=== PATIENT | male | born 1940 | race Caucasian/White ===

== ENCOUNTER 2021-01-01 12:51 | Emergency (ER) | payer MEDICARE ==
--- NOTE | 2021-01-01 13:21 | EDM.PDOC ---
ED HPI GENERAL MEDICAL PROBLEM - General Chief Complaint: General Stated Complaint: SENT FROM [facility]COM[facility] Time Seen by Provider: 01/01/21 13:20 Source of Information: Reports: Patient, RN, RN Notes Reviewed History Limitations: Reports: No Limitations - History of Present Illness INITIAL COMMENTS - FREE TEXT/NARRATIVE: Pt brought from [facility] due to elevated blood pressure, shortness of breath when laying flat, increased leg edema, generalized weakness, and feeling dizzy/lightheaded at times. Pt states he's most SOB when lying down, sleeps propped on 2 pillows. No home O2, no current shortness of breath. Pt caregivers state pt is weaker today than normal. Pt admits to some medication noncompliance which is echoed by caregivers. Pt denies chest pain, fever, chills, cough, N/V, or acute motor deficits. Onset: Gradual, Unknown/Unsure Duration: Chronic, Getting Worse Location: Reports: Chest, Generalized Quality: Reports: Other (Denies pain) Severity: Severe Improves with: Reports: None Worsens with: Reports: None Associated Symptoms: Reports: No Other Symptoms - Related Data Allergies Allergy/AdvReac Type Severity Reaction Status Date / Time No Known Allergies Allergy Verified 01/01/21 13:20 Home Meds: Home Meds Allopurinol [Zyloprim] 150 mg PO DAILY 01/01/21 [History] Bumetanide [Bumex] 1 mg PO DAILY 01/01/21 [History] Finasteride [Proscar] 5 mg PO DAILY 01/01/21 [History] Rosuvastatin [Crestor] 10 mg PO DAILY 01/01/21 [History] Tamsulosin [Tamsulosin 24 Hr] 0.4 mg PO DAILY 01/01/21 [History] atenoloL [Atenolol] 100 mg PO DAILY 01/01/21 [History] glipiZIDE [Glipizide ER] 20 mg PO DAILY 01/01/21 [History] Past Medical History Cardiovascular History: Reports: Afib, Heart Failure, Hypertension Neurological History: Reports: CVA Endocrine/Metabolic History: Reports: Diabetes, Type II, Obesity/BMI 30+ Social & Family History - Family History Family Medical History: Unobtainable - Alcohol Use Alcohol Use History: Yes Alcohol Use Frequency: Not Used in Over 1 Year - Living Situation & Occupation Living situation: Reports: with Family Occupation: Retired ED ROS GENERAL - Review of Systems Review Of Systems: Comprehensive ROS is negative, except as noted in HPI. ED EXAM, GENERAL - Physical Exam Exam: See Below Exam Limited By: No Limitations General Appearance: Alert, No Apparent Distress, Obese, Other (Chronically ill appearing elderly male) Eye Exam: Bilateral Eye: Normal Inspection Nose: Normal Inspection, Normal Mucosa, No Blood Throat/Mouth: Normal Inspection, Normal Lips, Normal Voice, No Airway Compromise Head: Atraumatic, Normocephalic Neck: Normal Inspection Respiratory/Chest: No Respiratory Distress, No Accessory Muscle Use, Decreased Breath Sounds Cardiovascular: JVD, Irregularly Irregular, Other (+3 pitting edema to the knees B/L) GI/Abdominal: Normal Bowel Sounds, Soft, Non-Tender, No Distention, Hernia (ventral) Back Exam: Normal Inspection Extremities: Normal Range of Motion, Pedal Edema Neurological: Alert, Oriented, No Motor/Sensory Deficits, Other (Generalized weakness) Psychiatric: Depressed Mood, Flat Affect Skin Exam: Warm, Dry, Normal Color, No Rash #1 Interpretation EKG Date: 01/01/21 Time: 13:40 Rhythm: A-Fib Rate (Beats/Min): 79 Jay: Normal P-Wave: Absent QRS: RBBB ST-T: Normal QT: Normal Comparison: NA - No Prior EKG EKG Interpretation Comments: Motion artifact in V3. Course - Vital Signs Last Recorded V/S: Last Vital Signs Temp 97.9 F 01/01/21 13:11 Pulse 87 01/01/21 13:11 Resp 20 01/01/21 13:11 BP 154/100 H 01/01/21 13:11 Pulse Ox 96 01/01/21 13:11 - Orders/Labs/Meds Orders: Active Orders 24 hr Category Date Time Status EKG 12 Lead [EKG Documentation Completion] [RC] STAT Care 01/01/21 13:35 Active Peripheral IV Care [RC] . DIRECTED Care 01/01/21 13:36 Active UA RFX CHYNA AND CULT IF INDIC [URIN] Stat Lab 01/01/21 13:35 Ordered Sodium Chloride 0.9% [Saline Flush] Med 01/01/21 13:34 Active 10 ml FLUSH ASDIRECTED PRN Peripheral IV Insertion Adult [OM.PC] Stat Oth 01/01/21 13:35 Ordered Medication Orders Sodium Chloride (Saline Flush) 10 ml FLUSH ASDIRECTED PRN PRN Reason: Keep Vein Open Last Admin: 01/01/21 13:49 Dose: 10 ml Documented by: ANNIKA Labs: Laboratory Tests 01/01/21 01/01/21 01/01/21 Range/Units 13:45 13:45 13:45 WBC 7.8 (5.0-10.0) 10^3/uL RBC 4.74 (4.6-6.2) 10^6/uL Hgb 14.7 (14.0-18.0) g/dL Hct 44.9 (40.0-54.0) % MCV 94.7 (80-100) fL MCH 31.0 (27.0-34.0) pg MCHC 32.7 L (33.0-35.0) g/dL Plt Count 170 (150-450) 10^3/uL Neut % (Auto) 68.1 (42.2-75.2) % Lymph % (Auto) 20.0 L (20.5-50.1) % [place] % (Auto) 9.9 H (2-8) % Eos % (Auto) 1.7 (1.0-3.0) % Baso % (Auto) 0.3 (0.0-1.0) % PT 11.6 (9.0-12.0) SEC INR 1.2 (0.9-1.2) APTT 23.7 (22.0-34.0) SEC Sodium 139 (136-145) mmol/L Potassium 3.5 (3.5-5.1) mmol/L Chloride 103 (98-107) mmol/L Carbon Dioxide 32 (21-32) mmol/L Anion Gap 7.5 (7-13) mEq/L BUN 26 H (7-18) mg/dL Creatinine 1.65 H (0.70-1.30) mg/dL Est Cr Clr Drug Dosing 39.19 mL/min Estimated GFR (MDRD) 40 BUN/Creatinine Ratio 15.8 (No establ ref range) Glucose 198 H (74-99) mg/dL Calcium 9.1 (8.5-10.1) mg/dL Magnesium 1.8 (1.8-2.4) mg/dL Total Bilirubin 0.7 (0.2-1.0) mg/dL AST 20 (15-37) U/L ALT 28 (16-63) U/L Alkaline Phosphatase 111 (46-116) U/L Troponin I 0.026 (0.000-0.056) ng/mL B-Natriuretic Peptide 622 H (0-100) pg/ml Total Protein 6.6 (6.4-8.2) g/dL Albumin 3.1 L (3.4-5.0) g/dL Globulin 3.5 Albumin/Globulin Ratio 0.89 TSH, Ultra Sensitive 1.06 (0.36-3.74) uIU/mL Meds: Medications Generic Name Dose Route Start Last Admin Trade Name Freq PRN Reason Stop Dose Admin Sodium Chloride 10 ml 01/01/21 13:34 01/01/21 13:49 Saline Flush FLUSH 10 ml ASDIRECTED PRN Administration Keep Vein Open Discontinued Medications Generic Name Dose Route Start Last Admin Trade Name Freq PRN Reason Stop Dose Admin Hydralazine HCl 25 mg 01/01/21 14:31 Apresoline PO 01/01/21 14:32 ONETIME ONE Quetiapine Fumarate 50 mg 01/01/21 14:16 Seroquel PO 01/01/21 14:17 ONETIME ONE - Radiology Interpretation Free Text/Narrative:: [facility] Final Radiology Report Call: [phone] assistance Online chat: [email or web address] Name: CHARMAINE LAMB Age: 80Years M Date: 01/01/2021 SSN: -- : [id number] Study: CR CHEST 1V FRONTAL Requesting Physician: CAMPBELL TROY Images: 1 Addl Studies: Provided Clinical History: Gen. weakness, orthopnea, edema Contrast: Contrast Medium: Contrast Amount: Contrast Method: CONFIDENTIALITY STATEMENT This report is intended only for use by the referring physician, and only in accordance with law. If you received this in error, call [phone]. Page 1 of 1 PROCEDURE INFORMATION: Exam: XR Chest, 1 View Exam date and time: 01/01/2021 1:40 PM Age: 80 years old Clinical indication: Other: Gen. Weakness, orthopnea, edema; Prior surgery; Surgery date: 6+ months TECHNIQUE: Imaging protocol: XR of the chest Views: 1 view. COMPARISON: No relevant prior studies available. FINDINGS: Lungs: Unremarkable. No consolidation. Pleural spaces: Fluid or thickened pleura in the left costophrenic angle. Heart/Mediastinum: Cardiomegaly. Sternotomy with mediastinal. Bones/joints: Unremarkable. IMPRESSION: 1. Minimal fluid or thickened pleura left costophrenic angle. 2. Cardiomegaly. Thank you for allowing us to participate in the care of your patient. Dictated and Authenticated by: Verenice Gandara MD 01/01/2021 1:48 PM Central Time ([place] & [place]) - Re-Assessments/Exams Free Text/Narrative Re-Assessment/Exam: 01/01/21 14:37 I explained the exam findings and diagnostic results to the pt. I seen no evidence of decompensated CHF, acute coronary syndrome, pneumonia, or any indication that the pt would benefit from being admitted at this time. Essentially the pt has been choosing to not take his medications, and not wearing his compression stockings. Departure - Departure Time of Disposition: 14:41 Disposition: Home, Self-Care 01 Condition: Fair Clinical Impression: Hypertension, uncontrolled, Dependent edema, Noncompliance w/medication treatment due to intermit use of medication - Discharge Information *PRESCRIPTION DRUG MONITORING PROGRAM REVIEWED*: Not Applicable *COPY OF PRESCRIPTION DRUG MONITORING REPORT IN PATIENT RIAN: Not Applicable Instructions: Hypertension, Adult, [id number], Edema, [id number] Forms: ED Department Discharge Additional Instructions: Take your Bumex every morning. Wear your compression stockings. Call Dr. Avendaño's clinic to schedule an appointment to review your medications. Sepsis Event Note (ED) - Evaluation Sepsis Screening Result: No Definite Risk - Focused Exam Vital Signs: Vital Signs Temp Pulse Resp BP Pulse Ox 01/01/21 13:11 97.9 F 87 20 154/100 H 96 - My Orders Last 24 Hours: My Active Orders 01/01/21 13:34 Sodium Chloride 0.9% [Saline Flush] 10 ml FLUSH ASDIRECTED PRN 01/01/21 13:35 EKG 12 Lead [EKG Documentation Completion] [RC] STAT UA RFX CHYNA AND CULT IF INDIC [URIN] Stat Peripheral IV Insertion Adult [OM.PC] Stat 01/01/21 13:36 Peripheral IV Care [RC] . DIRECTED - Assessment/Plan Last 24 Hours: My Active Orders 01/01/21 13:34 Sodium Chloride 0.9% [Saline Flush] 10 ml FLUSH ASDIRECTED PRN 01/01/21 13:35 EKG 12 Lead [EKG Documentation Completion] [RC] STAT UA RFX CHYNA AND CULT IF INDIC [URIN] Stat Peripheral IV Insertion Adult [OM.PC] Stat 01/01/21 13:36 Peripheral IV Care [RC] . DIRECTED
[2021-01-01] MEDS ORDERED: Sodium Chloride 0.9% 10 ML Syringe FLUSH PRN (13:34)
--- NOTE | 2021-01-01 13:48 | CR ---
PROCEDURE INFORMATION: Exam: XR Chest, 1 View Exam date and time: 01/01/2021 1:40 PM Age: 80 years old Clinical indication: Other: Gen. Weakness, orthopnea, edema; Prior surgery; Surgery date: 6+ months TECHNIQUE: Imaging protocol: XR of the chest Views: 1 view. COMPARISON: No relevant prior studies available. FINDINGS: Lungs: Unremarkable. No consolidation. Pleural spaces: Fluid or thickened pleura in the left costophrenic angle. Heart/Mediastinum: Cardiomegaly. Sternotomy with mediastinal. Bones/joints: Unremarkable. IMPRESSION: 1. Minimal fluid or thickened pleura left costophrenic angle. 2. Cardiomegaly.
[2021-01-01] MEDS ORDERED: LORazepam 0.5 MG Tab PO ONE (14:16)
[2021-01-01] MEDS ORDERED: QUEtiapine 25 MG Tab PO ONE (14:16)
[2021-01-01 14:19] LABS: ANION GAP 7.5 mEq/L (7-13)
[2021-01-01 14:29] LABS: PTT,PARTIAL THROMBOPLSTIN TIME 23.7 SEC (22.0-34.0)
[2021-01-01] MEDS ORDERED: hydrALAZINE 25 MG Tab PO ONE (14:31)
== END 2021-01-01 15:16 | disposition home or self-care (01) ==
LOC: DL.ED 12:51
DX: I10 Essential (primary) hypertension (principal); R60.0 Localized edema; I48.91 Unspecified atrial fibrillation; I11.0 Hypertensive heart disease with heart failure; I50.9 Heart failure, unspecified; E11.9 Type 2 diabetes mellitus without complications; E66.9 Obesity, unspecified; Z79.899 Other long term (current) drug therapy; Z79.84 Long term (current) use of oral hypoglycemic drugs; Z68.32 Body mass index [BMI] 32.0-32.9, adult; Z91.14 Patient's other noncompliance with medication regimen; Z86.73 Personal history of transient ischemic attack (TIA), and cerebral infarction without residual deficits
CPT/HCPCS: 36415; 71045; 80053; 81001; 83735; 83880; 84443; 84484; 85025; 85610; 85730; 87086; 87088; 87186; 93005; 99285; A9270; 93010; 99284

== ENCOUNTER 2021-02-11 17:17 | Observation (INO) | payer MEDICARE ==
--- NOTE | 2021-02-11 17:56 | PCM.PN ---
- General Info Date of Service: 02/11/21 Admission Dx/Problem (Free Text): 80M w/ pmh cognitive impairment, diastolic CHF, HT, AAA, CAD s/p CABGx2, CKD3, pulm HT, DM2, s/p CVA w/ left sided weakness, gout, renal artery stenosis, MELLY, afib presents w/ confusion. Pt had recently moved in with family. He is at baseline forgetful but has insisted to manage his own medications. He reportedly self discontinued his eliquis due to hematuria. There is also questionable compliance with bumex. He is also reportedly trying to move out of daughters house into assisted living. He came into clinic today to establish new PCP. He was found confused, unable to report meds, lost his glasses in the clinic, swollen red legs, malodorous, UA+ for UTI, unclear safe discharge back home. He was sent to the hospital to address all of above. - Review of Systems General: Reports: Weakness. Denies: Fever, Chills, Night Sweats HEENT: Denies: Headaches Pulmonary: Denies: Shortness of Breath, Cough Cardiovascular: Reports: Edema (trace RLE, 1+ LLE). Denies: Chest Pain, Orthopnea Gastrointestinal: Denies: Abdominal Pain, Constipation, Diarrhea Genitourinary: Reports: Frequency, Hematuria. Denies: Dysuria Skin: Denies: Jaundice Neurological: Reports: Confusion, Dizziness. Denies: Tremors Psychiatric: Reports: Confusion. Denies: Anxiety - Patient Data Med Orders - Current: Current Medications Acetaminophen (Acetaminophen 325 Mg Tab) 650 mg PO Q4H PRN PRN Reason: Pain (Mild 1-3)/fever Apixaban (Apixaban 5 Mg Tab) 2.5 mg PO BID [facility] Ceftriaxone Sodium 1 gm/ (Sodium Chloride) 50 mls @ 100 mls/hr IV Q24H LEONEL - Exam Quality Assessment: No: Supplemental Oxygen General: Alert, Cooperative HEENT: Pupils Equal, Pupils Reactive Neck: Supple Lungs: Clear to Auscultation, Normal Respiratory Effort GI/Abdominal Exam: Normal Bowel Sounds, Soft, Non-Tender, No Distention Back Exam: Normal Inspection Extremities: Other (trace RLE, 1+ LLE) Peripheral Pulses: 1+: Dorsalis Pedis (L), Dorsalis Pedis (R) Skin: Warm, Dry, Other (b/l chronic venous stasis dermatitis, LLE plantar aspect calice) Neurological: Other (left sided weakness) Psy/Mental Status: Alert, Normal Affect, Normal Mood - Problem List Review Problem List Initiated/Reviewed/Updated: No - My Orders Last 24 Hours: My Active Orders 02/11/21 Breakfast Consistent Carbohydrate Diet [DIET] 02/11/21 17:36 Patient Status [ADT] Routine Oxygen Therapy [RC] PRN VTE/DVT Education [RC] PER UNIT ROUTINE Vital Signs [RC] Q4H Resuscitation Status Routine 02/11/21 17:38 Up With Assistance [RC] ASDIRECTED PT Evaluation and Treatment [CONS] Routine Venous Doppler Lwr Ext Bi [US] Routine Acetaminophen [TylenoL] 650 mg PO Q4H PRN 02/11/21 17:42 CORONAVIRUS COVID-19 YI [MOLEC] Urgent 02/11/21 17:45 cefTRIAXone [Rocephin] 1 gm Sodium Chloride 0.9% [Normal Saline] 50 ml IV Q24H 02/11/21 21:00 Apixaban [Eliquis] 2.5 mg PO BID 02/12/21 05:11 BASIC METABOLIC PANEL,BMP [CHEM] AM CBC WITH AUTO DIFF [HEME] AM GLYCOSYLATED HEMOGLOBIN,HGBA1C [CHEM] AM - Plan Plan:: #UTI w/ possible toxic encephalopathy - UA positive in clinic - dose ceftriaxone pending cultures #b/l LE edema - d-dimer elevated in clinic but suspect this is due to venous stasis - the legs do not appear acute on my exam - check LE dopplers - restart eliquis #afib - c/w atenolol and re-start eliquis at 2.5 bid due to Cr 1.6 and 80yo meeting low dose criteria - no hematuria now and benefit of stroke ppx outweighs the risks #DM2 - hold glyburide - check A1c #chronic diastolic CHF / CKD3 / hx CVA / CAD / MELLY / gout / pulm HT - c/w home meds PT and CM consults to work out a safe discharge plan PPX - on eliquis Full code
[2021-02-11] MEDS ORDERED: Sodium Chloride 0.9% 10 ML Syringe FLUSH PRN (18:10)
[2021-02-11] MEDS: cefTRIAXone 1 GM in Sodium Chloride 0.9% 50 ML IV SCH (19:24)
[2021-02-11] MEDS: Apixaban 5 MG Tab PO SCH (21:10)
[2021-02-11] MEDS: Tamsulosin 0.4 MG Cap.ER PO SCH (21:11)
[2021-02-11] MEDS: Losartan 50 MG Tab PO SCH (21:11)
[2021-02-11] MEDS: Rosuvastatin 10 MG Tab PO SCH (21:11)
[2021-02-11] MEDS: Finasteride 5 MG Tab PO SCH (21:27)
[2021-02-11] MEDS: Acetaminophen 325 MG Tab PO PRN (23:36)
[2021-02-12 06:48] LABS: ANION GAP 10.5 mEq/L (7-13); HEMOGLOBIN A1C 8.3 % (<5.7)
[2021-02-12] MEDS ORDERED: Allopurinol 300 MG Tab PO SCH (09:00)
[2021-02-12] MEDS: Potassium Chloride 10 MEQ Tab.ER PO SCH (09:37)
[2021-02-12] MEDS: Bumetanide 1 MG Tab PO SCH (09:37)
[2021-02-12] MEDS: Atenolol 50 MG Tab PO SCH (09:38)
[2021-02-12] MEDS: Apixaban 5 MG Tab PO SCH ×2 (09:38→20:22)
--- NOTE | 2021-02-12 12:49 | US ---
EXAMINATION: Venous Doppler Lwr Ext Bi SEX: Male AGE: 80 years CLINICAL HISTORY: 80-year-old male with bilateral LOWER EXTREMITY SWELLING. Significantly, this patient stopped his "blood thinners" , PRN. Interpretation: Abnormal. 1. *Intraluminal echogenic thrombus and noncompressible deep veins of both groins (common femoral veins) and the popliteal vein behind the left knee. No augmentation or demonstration of blood flow through these vessels. DVT. 2. No sign of intraluminal echogenic thrombus and normal blood flow (patency) demonstrated in the peroneal veins left calf and both the posterior tibial veins of the left and right calf. 3. Popliteal vein behind the right knee is patent (left popliteal vein occluded). 4. Patency and blood flow (no thrombus) demonstrated in the superficial femoral veins of the thighs, bilaterally. CONCLUSION: Significant deep vein thrombosis both lower extremities, proximally in the groins (common femoral veins).
--- NOTE | 2021-02-12 17:21 | PCM.PN ---
- General Info Date of Service: 02/12/21 Admission Dx/Problem (Free Text): No complaints. Compliant w/ instructions to allow family to do med management at home. Agreeable now to take eliquis. - Patient Data Vitals - Most Recent: Last Vital Signs Temp 98 F 02/12/21 11:21 Pulse 54 L 02/12/21 11:21 Resp 18 02/12/21 11:21 BP 144/74 H 02/12/21 11:21 Pulse Ox 99 02/12/21 11:21 Weight - Most Recent: 217 lb 3.2 oz I&O - Last 24 Hours: Intake & Output 02/12/21 02/12/21 02/12/21 06:59 14:59 22:59 Intake Total 300 480 Output Total 750 1100 Balance -450 -620 Lab Results Last 24 Hours: Laboratory Results - last 24 hr 02/11/21 02/11/21 02/12/21 Range/Units 18:04 21:07 06:05 WBC 5.7 (5.0-10.0) 10^3/uL RBC 4.40 L (4.6-6.2) 10^6/uL Hgb 13.6 L (14.0-18.0) g/dL Hct 41.3 (40.0-54.0) % MCV 93.9 (80-100) fL MCH 30.9 (27.0-34.0) pg MCHC 32.9 L (33.0-35.0) g/dL Plt Count 138 L (150-450) 10^3/uL Neut % (Auto) 50.5 (42.2-75.2) % Lymph % (Auto) 30.8 (20.5-50.1) % Rowan % (Auto) 12.7 H (2-8) % Eos % (Auto) 5.5 H (1.0-3.0) % Baso % (Auto) 0.5 (0.0-1.0) % Sodium (136-145) mmol/L Potassium (3.5-5.1) mmol/L Chloride (98-107) mmol/L Carbon Dioxide (21-32) mmol/L Anion Gap (7-13) mEq/L BUN (7-18) mg/dL Creatinine (0.70-1.30) mg/dL Est Cr Clr Drug Dosing mL/min Estimated GFR (MDRD) Glucose (74-99) mg/dL POC Glucose 241 H (83-110) mg/dl Hemoglobin A1c (<5.7) % Calcium (8.5-10.1) mg/dL SARS-CoV-2 RNA (YI) Negative (NEGATIVE) 02/12/21 02/12/21 Range/Units 06:05 06:05 WBC (5.0-10.0) 10^3/uL RBC (4.6-6.2) 10^6/uL Hgb (14.0-18.0) g/dL Hct (40.0-54.0) % MCV (80-100) fL MCH (27.0-34.0) pg MCHC (33.0-35.0) g/dL Plt Count (150-450) 10^3/uL Neut % (Auto) (42.2-75.2) % Lymph % (Auto) (20.5-50.1) % Rowan % (Auto) (2-8) % Eos % (Auto) (1.0-3.0) % Baso % (Auto) (0.0-1.0) % Sodium 145 (136-145) mmol/L Potassium 3.5 (3.5-5.1) mmol/L Chloride 107 (98-107) mmol/L Carbon Dioxide 31 (21-32) mmol/L Anion Gap 10.5 (7-13) mEq/L BUN 26 H (7-18) mg/dL Creatinine 1.56 H (0.70-1.30) mg/dL Est Cr Clr Drug Dosing 41.45 mL/min Estimated GFR (MDRD) 43 Glucose 146 H (74-99) mg/dL POC Glucose (83-110) mg/dl Hemoglobin A1c 8.3 H (<5.7) % Calcium 8.8 (8.5-10.1) mg/dL SARS-CoV-2 RNA (YI) (NEGATIVE) Med Orders - Current: Current Medications Acetaminophen (Acetaminophen 325 Mg Tab) 650 mg PO Q4H PRN PRN Reason: Pain (Mild 1-3)/fever Last Admin: 02/11/21 23:36 Dose: 650 mg Documented by: Allopurinol (Allopurinol 300 Mg Tab) 150 mg PO DAILY LEONEL Apixaban (Apixaban 5 Mg Tab) 10 mg PO BID [facility] Atenolol (Atenolol 50 Mg Tab) 50 mg PO DAILY [facility] Last Admin: 02/12/21 09:38 Dose: 50 mg Documented by: Bumetanide (Bumetanide 1 Mg Tab) 1 mg PO DAILY [facility] Last Admin: 02/12/21 09:37 Dose: 1 mg Documented by: Finasteride (Finasteride 5 Mg Tab) 5 mg PO BEDTIME [facility] Last Admin: 02/11/21 21:27 Dose: 5 mg Documented by: Ceftriaxone Sodium 1 gm/ (Sodium Chloride) 50 mls @ 100 mls/hr IV Q24H [facility] Last Infusion: 02/11/21 19:50 Dose: Infused Documented by: Losartan Potassium (Losartan 50 Mg Tab) 50 mg PO BEDTIME [facility] Last Admin: 02/11/21 21:11 Dose: 50 mg Documented by: Potassium Chloride (Potassium Chloride 10 Meq Tab.Er) 10 meq PO DAILY [facility] Last Admin: 02/12/21 09:37 Dose: 10 meq Documented by: Rosuvastatin Calcium (Rosuvastatin 10 Mg Tab) 10 mg PO BEDTIME [facility] Last Admin: 02/11/21 21:11 Dose: 10 mg Documented by: Sodium Chloride (Sodium Chloride 0.9% 10 Ml Syringe) 10 ml FLUSH ASDIRECTED PRN PRN Reason: Keep Vein Open Last Admin: 02/11/21 19:50 Dose: 10 ml Documented by: Tamsulosin HCl (Tamsulosin 0.4 Mg Cap.Er) 0.4 mg PO BEDTIME [facility] Last Admin: 02/11/21 21:11 Dose: 0.4 mg Documented by: Discontinued Medications Allopurinol (Allopurinol 300 Mg Tab) 300 mg PO DAILY [facility] Last Admin: 02/12/21 09:39 Dose: 300 mg Documented by: Apixaban (Apixaban 5 Mg Tab) 2.5 mg PO BID [facility] Last Admin: 02/12/21 09:38 Dose: 2.5 mg Documented by: - Exam Quality Assessment: No: Supplemental Oxygen General: Alert, Oriented, Cooperative HEENT: Pupils Equal, Pupils Reactive Neck: Supple Lungs: Clear to Auscultation, Normal Respiratory Effort Cardiovascular: Regular Rate, Regular Rhythm, No Murmurs GI/Abdominal Exam: Normal Bowel Sounds, Soft, Non-Tender, No Distention Extremities: Pedal Edema (trace RLE, 1+ pitting LLE) Skin: Other (b/l LE venous stasis dermatitis) Neurological: No New Focal Deficit Psy/Mental Status: Alert, Normal Affect, Normal Mood - Patient Data Lab Results Last 24 hrs: Laboratory Results - last 24 hr 02/11/21 02/11/21 02/12/21 Range/Units 18:04 21:07 06:05 WBC 5.7 (5.0-10.0) 10^3/uL RBC 4.40 L (4.6-6.2) 10^6/uL Hgb 13.6 L (14.0-18.0) g/dL Hct 41.3 (40.0-54.0) % MCV 93.9 (80-100) fL MCH 30.9 (27.0-34.0) pg MCHC 32.9 L (33.0-35.0) g/dL Plt Count 138 L (150-450) 10^3/uL Neut % (Auto) 50.5 (42.2-75.2) % Lymph % (Auto) 30.8 (20.5-50.1) % Rowan % (Auto) 12.7 H (2-8) % Eos % (Auto) 5.5 H (1.0-3.0) % Baso % (Auto) 0.5 (0.0-1.0) % Sodium (136-145) mmol/L Potassium (3.5-5.1) mmol/L Chloride (98-107) mmol/L Carbon Dioxide (21-32) mmol/L Anion Gap (7-13) mEq/L BUN (7-18) mg/dL Creatinine (0.70-1.30) mg/dL Est Cr Clr Drug Dosing mL/min Estimated GFR (MDRD) Glucose (74-99) mg/dL POC Glucose 241 H (83-110) mg/dl Hemoglobin A1c (<5.7) % Calcium (8.5-10.1) mg/dL SARS-CoV-2 RNA (YI) Negative (NEGATIVE) 02/12/21 02/12/21 Range/Units 06:05 06:05 WBC (5.0-10.0) 10^3/uL RBC (4.6-6.2) 10^6/uL Hgb (14.0-18.0) g/dL Hct (40.0-54.0) % MCV (80-100) fL MCH (27.0-34.0) pg MCHC (33.0-35.0) g/dL Plt Count (150-450) 10^3/uL Neut % (Auto) (42.2-75.2) % Lymph % (Auto) (20.5-50.1) % Rowan % (Auto) (2-8) % Eos % (Auto) (1.0-3.0) % Baso % (Auto) (0.0-1.0) % Sodium 145 (136-145) mmol/L Potassium 3.5 (3.5-5.1) mmol/L Chloride 107 (98-107) mmol/L Carbon Dioxide 31 (21-32) mmol/L Anion Gap 10.5 (7-13) mEq/L BUN 26 H (7-18) mg/dL Creatinine 1.56 H (0.70-1.30) mg/dL Est Cr Clr Drug Dosing 41.45 mL/min Estimated GFR (MDRD) 43 Glucose 146 H (74-99) mg/dL POC Glucose (83-110) mg/dl Hemoglobin A1c 8.3 H (<5.7) % Calcium 8.8 (8.5-10.1) mg/dL SARS-CoV-2 RNA (YI) (NEGATIVE) Result Diagrams: 02/12/21 06:05 02/12/21 06:05 Sepsis Event Note - Evaluation Sepsis Screening Result: No Definite Risk - Focused Exam Vital Signs: Vital Signs Temp Pulse Pulse Resp BP BP Pulse Ox 02/12/21 11:21 98 F 54 L 18 144/74 H 99 02/12/21 09:38 56 L 140/70 02/12/21 07:31 98 F 56 L 16 140/70 99 - Problem List Review Problem List Initiated/Reviewed/Updated: No - My Orders Last 24 Hours: My Active Orders 02/11/21 17:36 Patient Status [ADT] Routine Oxygen Therapy [RC] PRN VTE/DVT Education [RC] 08,20 Vital Signs [RC] 20,00,04,08,12,16 Resuscitation Status Routine 02/11/21 17:38 Up With Assistance [RC] ASDIRECTED PT Evaluation and Treatment [CONS] Routine Venous Doppler Lwr Ext Bi [US] Routine Acetaminophen [TylenoL] 650 mg PO Q4H PRN 02/11/21 18:00 cefTRIAXone [Rocephin] 1 gm Sodium Chloride 0.9% [Normal Saline] 50 ml IV Q24H 02/11/21 18:10 Sodium Chloride 0.9% [Saline Flush] 10 ml FLUSH ASDIRECTED PRN Saline Lock Insert [OM.PC] Routine 02/11/21 21:00 Losartan [Cozaar] 50 mg PO BEDTIME Rosuvastatin [Crestor] 10 mg PO BEDTIME Tamsulosin [Flomax] 0.4 mg PO BEDTIME 02/11/21 21:30 Finasteride [Proscar] 5 mg PO BEDTIME 02/12/21 09:00 Bumetanide [Bumex] 1 mg PO DAILY Potassium Chloride [Klor-Con 10] 10 meq PO DAILY atenoloL [Tenormin] 50 mg PO DAILY 02/12/21 21:00 Apixaban [Eliquis] 10 mg PO BID 02/13/21 09:00 allopurinoL [Zyloprim] 150 mg PO DAILY - Plan Plan:: #UTI w/ possible toxic encephalopathy - UA positive in clinic - dose ceftriaxone pending cultures #b/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
[2021-02-12] MEDS: cefTRIAXone 1 GM in Sodium Chloride 0.9% 50 ML IV SCH (18:23)
[2021-02-12] MEDS: Acetaminophen 325 MG Tab PO PRN (20:21)
[2021-02-12] MEDS: Losartan 50 MG Tab PO SCH (20:21)
[2021-02-12] MEDS: Tamsulosin 0.4 MG Cap.ER PO SCH (20:22)
[2021-02-12] MEDS: Rosuvastatin 10 MG Tab PO SCH (20:22)
[2021-02-12] MEDS: Finasteride 5 MG Tab PO SCH (20:22)
[2021-02-13] MEDS ORDERED: Allopurinol 300 MG Tab PO SCH (09:00)
[2021-02-13] MEDS: Bumetanide 1 MG Tab PO SCH (09:49)
[2021-02-13] MEDS: Atenolol 50 MG Tab PO SCH (09:49)
[2021-02-13] MEDS: Apixaban 5 MG Tab PO SCH (09:49)
[2021-02-13] MEDS: Potassium Chloride 10 MEQ Tab.ER PO SCH (09:49)
--- NOTE | 2021-02-20 21:22 | PCM.DCSUM1 ---
Discharge Summary - Hospital Course Free Text/Narrative:: 80M w/ pmh cognitive impairment, diastolic CHF, HT, AAA, CAD s/p CABGx2, CKD3, pulm HT, DM2, s/p CVA w/ left sided weakness, gout, renal artery stenosis, MELLY, afib presents w/ confusion. Pt had recently moved in with family. He is at baseline forgetful but has insisted to manage his own medications. He reportedly self discontinued his eliquis due to hematuria. There is also questionable compliance with bumex. He is also reportedly trying to move out of daughters house into assisted living. He came into clinic today to establish new PCP. He was found confused, unable to report meds, lost his glasses in the clinic, swollen red legs, malodorous, UA+ for UTI, unclear safe discharge back home. He was sent to the hospital to address all of above. Pt completed 3 days course of ceftriaxone. His mental status improved. He was found to have b/l DVTs and initiated on eliquis. He is now agreeable. He was arranged for admission into a basic care assisted living facility shortly after discharge. Home medications were clarified. He went home w/ family. - Discharge Data Discharge Date: 02/13/21 Discharge Disposition: Home, W Home Health Agency 06 Condition: Good - Referral to Home Health Date of Face to Face Encounter: 02/13/21 Reason for Homebound Status: medically frail, cognitive impairment, impaired mobility due to bilateral DVT Primary Care Physician: PCP None Skilled Need: home safety assessment, VS monitoring, medication education, PT/OT for strengthening and conditioning - Patient Summary/Data Consults: Consultations 02/11/21 17:38 PT Evaluation and Treatment [CONS] Routine - Discharge Plan *PRESCRIPTION DRUG MONITORING PROGRAM REVIEWED*: Not Applicable *COPY OF PRESCRIPTION DRUG MONITORING REPORT IN PATIENT RIAN: Not Applicable Prescriptions/Med Rec: Apixaban [Eliquis] 10 mg PO BID #71 tablet Home Medications: Home Meds Allopurinol [Zyloprim] 150 mg PO DAILY 02/11/21 [History] Bumetanide 1 mg PO DAILY 02/11/21 [History] Cholecalciferol (Vitamin D3) [Vitamin D3] 1,000 units PO DAILY 02/11/21 [History] Finasteride 5 mg PO DAILY 02/11/21 [History] Flaxseed Oil [Flax Oil] 3,000 mg PO DAILY 02/11/21 [History] Losartan [Cozaar] 50 mg PO BEDTIME 02/11/21 [History] Potassium Chloride [Klor-Con 10] 10 meq PO DAILY 02/11/21 [History] Rosuvastatin [Crestor] 10 mg PO BEDTIME 02/11/21 [History] Tamsulosin HCl 0.4 mg PO BEDTIME 02/11/21 [History] Ubidecarenone [Coenzyme Q10] 100 mg PO DAILY 02/11/21 [History] Vitamin B Complex [B Complex] 3 each PO BID 02/11/21 [History] atenoloL [Atenolol] 50 mg PO DAILY 02/11/21 [History] glipiZIDE [Glucotrol] 5 mg PO BIDMEALS 02/11/21 [History] Magnesium Oxide 400 mg PO DAILY 02/12/21 [History] Apixaban [Eliquis] 10 mg PO BID #71 tablet 02/13/21 [Rx] Curcumin 500 mg PO DAILY 02/13/21 [History] Glucosamine [Glucosamine Sulfate] 475 mg PO DAILY 02/13/21 [History] Grape Seed Extract [Meganatural-Bp] 375 mg PO DAILY 02/13/21 [History] Nattozyme 100 mg PO DAILY 02/13/21 [History] Non-Formulary Medication [NF Drug] 2 tab PO DAILY 02/13/21 [History] [place]-3/DHA/Epa/Fish Oil [[place]-3 Fish Oil 1,000 MG Sfgl] 1,000 mg PO BID 02/13/21 [History] Saw/Py/Net/Pumpk/Beta/Ly/Zn/Cu [Prostate Control Softgel] 1 each PO DAILY 02/13/21 [History] Saw/Py/Net/Pumpk/Beta/Ly/Zn/Cu [Prostate Control Softgel] 240 mg PO TID 02/13/21 [History] carvediloL [Carvedilol] 6.25 mg PO BID 02/13/21 [History] Patient Handouts: How to Use Compression Stockings, Apixaban oral tablets, Deep Vein Thrombosis Referrals: Kiana South NP [Ordering Only Provider] - (Post hospital follow up appointment MondayFebruary 19 at 10:00am. ) - Discharge Summary/Plan Comment DC Time >30 min.: Yes (35 min) - Patient Data Vitals - Most Recent: Last Vital Signs Temp 97.9 F 02/13/21 08:00 Pulse 70 02/13/21 09:49 Resp 18 02/13/21 08:00 BP 141/87 H 02/13/21 09:49 Pulse Ox 96 02/13/21 08:00 Weight - Most Recent: 216 lb 9.6 oz Med Orders - Current: Current Medications Discontinued Medications Acetaminophen (Acetaminophen 325 Mg Tab) 650 mg PO Q4H PRN PRN Reason: Pain (Mild 1-3)/fever Last Admin: 02/12/21 20:21 Dose: 650 mg Documented by: Allopurinol (Allopurinol 300 Mg Tab) 300 mg PO DAILY [facility] Last Admin: 02/12/21 09:39 Dose: 300 mg Documented by: Allopurinol (Allopurinol 300 Mg Tab) 150 mg PO DAILY [facility] Last Admin: 02/13/21 09:50 Dose: 150 mg Documented by: Apixaban (Apixaban 5 Mg Tab) 2.5 mg PO BID [facility] Last Admin: 02/12/21 09:38 Dose: 2.5 mg Documented by: Apixaban (Apixaban 5 Mg Tab) 10 mg PO BID [facility] Last Admin: 02/13/21 09:49 Dose: 10 mg Documented by: Atenolol (Atenolol 50 Mg Tab) 50 mg PO DAILY [facility] Last Admin: 02/13/21 09:49 Dose: 50 mg Documented by: Bumetanide (Bumetanide 1 Mg Tab) 1 mg PO DAILY [facility] Last Admin: 02/13/21 09:49 Dose: 1 mg Documented by: Finasteride (Finasteride 5 Mg Tab) 5 mg PO BEDTIME [facility] Last Admin: 02/12/21 20:22 Dose: 5 mg Documented by: Ceftriaxone Sodium 1 gm/ (Sodium Chloride) 50 mls @ 100 mls/hr IV Q24H [facility] Last Admin: 02/12/21 18:23 Dose: 100 mls/hr Documented by: Losartan Potassium (Losartan 50 Mg Tab) 50 mg PO BEDTIME [facility] Last Admin: 02/12/21 20:21 Dose: 50 mg Documented by: Potassium Chloride (Potassium Chloride 10 Meq Tab.Er) 10 meq PO DAILY [facility] Last Admin: 02/13/21 09:49 Dose: 10 meq Documented by: Rosuvastatin Calcium (Rosuvastatin 10 Mg Tab) 10 mg PO BEDTIME [facility] Last Admin: 02/12/21 20:22 Dose: 10 mg Documented by: Sodium Chloride (Sodium Chloride 0.9% 10 Ml Syringe) 10 ml FLUSH ASDIRECTED PRN PRN Reason: Keep Vein Open Last Admin: 02/11/21 19:50 Dose: 10 ml Documented by: Tamsulosin HCl (Tamsulosin 0.4 Mg Cap.Er) 0.4 mg PO BEDTIME [facility] Last Admin: 02/12/21 20:22 Dose: 0.4 mg Documented by: - Exam Quality Assessment: Denies: Supplemental Oxygen General: Reports: Alert, Oriented, Cooperative HEENT: Reports: Pupils Equal, Pupils Reactive Neck: Reports: Supple Lungs: Reports: Clear to Auscultation, Normal Respiratory Effort Cardiovascular: Reports: Regular Rate, Regular Rhythm, No Murmurs GI/Abdominal Exam: Normal Bowel Sounds, Soft, Non-Tender, No Distention Extremities: Other (RLE 1+ pitting, LLE 2+ pitting) Skin: Reports: Warm, Dry Neurological: Reports: No New Focal Deficit Psy/Mental Status: Reports: Alert, Normal Affect, Normal Mood
== END 2021-02-13 14:50 | disposition home health service (06) ==
LOC: DL.MS 17:17 → INTOOBSV 17:17
PROVIDERS: ADMIT Internal Medicine; ATTEND Internal Medicine
DX: N39.0 Urinary tract infection, site not specified (principal); R53.1 Weakness; I48.91 Unspecified atrial fibrillation; I13.0 Hypertensive heart and chronic kidney disease with heart failure and stage 1 through stage 4 chronic kidney disease, or unspecified chronic kidney disease; I50.32 Chronic diastolic (congestive) heart failure; E11.22 Type 2 diabetes mellitus with diabetic chronic kidney disease; N18.30 Chronic kidney disease, stage 3 unspecified; I25.10 Atherosclerotic heart disease of native coronary artery without angina pectoris; I82.403 Acute embolism and thrombosis of unspecified deep veins of lower extremity, bilateral; M10.9 Gout, unspecified; R60.0 Localized edema; Z20.822 Contact with and (suspected) exposure to COVID-19; Z87.891 Personal history of nicotine dependence; Z95.1 Presence of aortocoronary bypass graft; Z98.890 Other specified postprocedural states; Z86.73 Personal history of transient ischemic attack (TIA), and cerebral infarction without residual deficits
CPT/HCPCS: 36415; 80048; 82962; 83036; 85025; 93970; A9270; J0696; U0002; 96365; 96376; 97162-GP; 99217; 99225; G0378; G0379

== ENCOUNTER 2021-03-14 17:43 | Emergency (ER) | payer MEDICARE ==
--- NOTE | 2021-03-14 18:05 | EDM.PDOC ---
ED HPI GENERAL MEDICAL PROBLEM - General Stated Complaint: BLOOD PRESSURE TO HIGH, DIZZY Time Seen by Provider: 03/14/21 18:00 Source of Information: Reports: Patient History Limitations: Reports: No Limitations - History of Present Illness INITIAL COMMENTS - FREE TEXT/NARRATIVE: This 81 yo male patient reports to the ED due to elevated blood pressure. The patient reports his blood pressure at [facility] was 160/105. The person that brought the patient to the ED reported that the patient had some dizziness, but the patient reports that he is not dizzy. The patient has not taken is evening meds by the time he arrived in the ED. Onset: Today Duration: Other Location: Reports: Other Quality: Reports: Other Severity: Mild Improves with: Reports: None Worsens with: Reports: None Context: Reports: Other - Related Data Allergies Allergy/AdvReac Type Severity Reaction Status Date / Time ciprofloxacin Allergy Tachycardia Verified 03/14/21 18:21 Home Meds: Home Meds Allopurinol [Zyloprim] 150 mg PO DAILY 02/11/21 [History] Bumetanide 1 mg PO DAILY 02/11/21 [History] Cholecalciferol (Vitamin D3) [Vitamin D3] 1,000 units PO DAILY 02/11/21 [History] Finasteride 5 mg PO DAILY 02/11/21 [History] Flaxseed Oil [Flax Oil] 3,000 mg PO DAILY 02/11/21 [History] Losartan [Cozaar] 50 mg PO BEDTIME 02/11/21 [History] Potassium Chloride [Klor-Con 10] 10 meq PO DAILY 02/11/21 [History] Rosuvastatin [Crestor] 10 mg PO BEDTIME 02/11/21 [History] Tamsulosin HCl 0.4 mg PO BEDTIME 02/11/21 [History] Ubidecarenone [Coenzyme Q10] 100 mg PO DAILY 02/11/21 [History] Vitamin B Complex [B Complex] 3 each PO BID 02/11/21 [History] atenoloL [Atenolol] 50 mg PO DAILY 02/11/21 [History] glipiZIDE [Glucotrol] 5 mg PO BIDMEALS 02/11/21 [History] Magnesium Oxide 400 mg PO DAILY 02/12/21 [History] Curcumin 500 mg PO DAILY 02/13/21 [History] Glucosamine [Glucosamine Sulfate] 475 mg PO DAILY 02/13/21 [History] Grape Seed Extract [Meganatural-Bp] 375 mg PO DAILY 02/13/21 [History] Nattozyme 100 mg PO DAILY 02/13/21 [History] Non-Formulary Medication [NF Drug] 2 tab PO DAILY 02/13/21 [History] [place]-3/DHA/Epa/Fish Oil [[place]-3 Fish Oil 1,000 MG Sfgl] 1,000 mg PO BID 02/13/21 [History] Saw/Py/Net/Pumpk/Beta/Ly/Zn/Cu [Prostate Control Softgel] 240 mg PO TID 02/13/21 [History] Apixaban [Eliquis] 2.5 mg PO BID 03/14/21 [History] Past Medical History HEENT History: Reports: Hard of Hearing Cardiovascular History: Reports: Afib, Heart Failure, Hypertension Respiratory History: Reports: None Gastrointestinal History: Reports: Other (See Below) Other Gastrointestinal History: umbilical hernia Genitourinary History: Reports: BPH Musculoskeletal History: Reports: Arthritis, Gout Neurological History: Reports: CVA Psychiatric History: Reports: None Endocrine/Metabolic History: Reports: Diabetes, Type II, Obesity/BMI 30+ Hematologic History: Reports: None Immunologic History: Reports: None Oncologic (Cancer) History: Reports: None Dermatologic History: Reports: None - Infectious Disease History Infectious Disease History: Reports: None - Past Surgical History HEENT Surgical History: Reports: Tonsillectomy Cardiovascular Surgical History: Reports: Coronary Artery Bypass Respiratory Surgical History: Reports: None GI Surgical History: Reports: None Male Surgical History: Reports: Ureteral Stent Endocrine Surgical History: Reports: None Neurological Surgical History: Reports: None Musculoskeletal Surgical History: Reports: None Social & Family History - Family History Family Medical History: No Pertinent Family History - Caffeine Use Caffeine Use: Reports: Coffee - Living Situation & Occupation Living situation: Reports: with Family Occupation: Retired ED ROS GENERAL - Review of Systems Review Of Systems: Comprehensive ROS is negative, except as noted in HPI. ED EXAM, GENERAL - Physical Exam Exam: See Below Exam Limited By: No Limitations General Appearance: Alert, WD/WN, No Apparent Distress Eye Exam: Bilateral Eye: EOMI, Normal Inspection, PERRL Ears: Normal External Exam, Normal Canal, Hearing Grossly Normal, Normal TMs Nose: Normal Inspection, Normal Mucosa, No Blood Throat/Mouth: Normal Inspection, Normal Lips, Normal Teeth, Normal Gums, Normal Oropharynx, Normal Voice, No Airway Compromise Head: Atraumatic, Normocephalic Neck: Normal Inspection, Supple, Non-Tender, Full Range of Motion Respiratory/Chest: No Respiratory Distress, Lungs Clear, Normal Breath Sounds, No Accessory Muscle Use, Chest Non-Tender Cardiovascular: Normal Peripheral Pulses, Regular Rate, Rhythm, No Edema, No Gallop, No JVD, No Murmur, No Rub GI/Abdominal: Normal Bowel Sounds, Soft, Non-Tender, No Organomegaly, No Distention, No Abnormal Bruit, No Mass (Male) Exam: Deferred Rectal (Males) Exam: Deferred Back Exam: Normal Inspection, Full Range of Motion, NT Extremities: Normal Inspection, Normal Range of Motion, Non-Tender, Normal Capillary Refill, No Pedal Edema Neurological: Alert, Oriented, CN II-XII Intact, Normal Cognition, Normal Gait, Normal Reflexes, No Motor/Sensory Deficits Psychiatric: Normal Affect, Normal Mood Skin Exam: Warm, Dry, Intact, Normal Color, No Rash Lymphatic: No Adenopathy #1 Interpretation EKG Date: 03/14/21 Time: 17:57 Rhythm: A-Fib [place]: Normal P-Wave: Absent QRS: Normal ST-T: Normal QT: Normal Comparison: No Change Course - Vital Signs Last Recorded V/S: Last Vital Signs Temp 36.6 C 03/14/21 18:08 Pulse 74 03/14/21 18:08 Resp 18 03/14/21 18:08 BP 141/68 H 03/14/21 18:12 Pulse Ox 100 03/14/21 18:08 - Orders/Labs/Meds Orders: Active Orders 24 hr Category Date Time Status EKG Documentation Completion [RC] STAT Care 03/14/21 17:48 Ordered Glucose [Blood Glucose Check, Bedside] [RC] ONETIME Care 03/14/21 17:49 Ordered Labs: Laboratory Tests 03/14/21 03/14/21 03/14/21 Range/Units 17:52 17:57 17:57 WBC 8.4 (5.0-10.0) 10^3/uL RBC 5.07 (4.6-6.2) 10^6/uL Hgb 15.3 D (14.0-18.0) g/dL Hct 47.4 (40.0-54.0) % MCV 93.5 (80-100) fL MCH 30.2 (27.0-34.0) pg MCHC 32.3 L (33.0-35.0) g/dL Plt Count 174 (150-450) 10^3/uL Neut % (Auto) 59.2 (42.2-75.2) % Lymph % (Auto) 24.4 (20.5-50.1) % [place] % (Auto) 12.3 H (2-8) % Eos % (Auto) 3.9 H (1.0-3.0) % Baso % (Auto) 0.2 (0.0-1.0) % Sodium 138 (136-145) mmol/L Potassium 4.1 (3.5-5.1) mmol/L Chloride 101 (98-107) mmol/L Carbon Dioxide 32 (21-32) mmol/L Anion Gap 9.1 (7-13) mEq/L BUN 33 H (7-18) mg/dL Creatinine 1.53 H (0.70-1.30) mg/dL Est Cr Clr Drug Dosing 41.56 mL/min Estimated GFR (MDRD) 44 BUN/Creatinine Ratio 21.6 (No establ ref range) Glucose 228 H (70-99) mg/dL POC Glucose 159 H (70-99) mg/dL Calcium 9.1 (8.5-10.1) mg/dL Total Bilirubin 0.5 (0.2-1.0) mg/dL AST 16 (15-37) U/L ALT 25 (16-63) U/L Alkaline Phosphatase 109 (46-116) U/L Troponin I 0.023 (0.000-0.056) ng/mL Total Protein 7.0 (6.4-8.2) g/dL Albumin 3.2 L (3.4-5.0) g/dL Globulin 3.8 Albumin/Globulin Ratio 0.84 - Re-Assessments/Exams Free Text/Narrative Re-Assessment/Exam: 03/14/21 18:14 The patient's blood pressure at time of evaluation was 140/65. Departure - Departure Time of Disposition: 18:45 Disposition: Home, Self-Care 01 Condition: Fair Clinical Impression: Hypertension Qualifiers: Hypertension type: unspecified Qualified Code(s): I10 - Essential (primary) hypertension A-fib Qualifiers: Atrial fibrillation type: unspecified chronic Qualified Code(s): I48.20 - Chronic atrial fibrillation, unspecified; I48.2 - Chronic atrial fibrillation Forms: ED Department Discharge Care Plan Goals: The patient was advised of the examination, lab and EKG results during the visit. The patient's blood pressure remained in the 140's-150's systolic during the visit. The patient had no additional symptoms during the visit. The patient was encouraged to continue to take his medications as prescribed. If the patient has any additional symptoms or concerns, the patient should follow-up with his primary care facility or return to the emergency department. Sepsis Event Note (ED) - Focused Exam Vital Signs: Vital Signs Temp Pulse Resp BP Pulse Ox 03/14/21 18:12 141/68 H 03/14/21 18:08 36.6 C 74 18 157/101 H 100 - My Orders Last 24 Hours: My Active Orders 03/14/21 17:48 EKG Documentation Completion [RC] STAT 03/14/21 17:49 Glucose [Blood Glucose Check, Bedside] [RC] ONETIME - Assessment/Plan Last 24 Hours: My Active Orders 03/14/21 17:48 EKG Documentation Completion [RC] STAT 03/14/21 17:49 Glucose [Blood Glucose Check, Bedside] [RC] ONETIME
[2021-03-14 18:41] LABS: ANION GAP 9.1 mEq/L (7-13)
== END 2021-03-14 18:57 | disposition home or self-care (01) ==
LOC: DL.ED 17:43
DX: I11.0 Hypertensive heart disease with heart failure (principal); I50.9 Heart failure, unspecified; M10.9 Gout, unspecified; I48.20 Chronic atrial fibrillation, unspecified; E11.9 Type 2 diabetes mellitus without complications; E66.9 Obesity, unspecified; Z68.30 Body mass index [BMI] 30.0-30.9, adult; Z88.1 Allergy status to other antibiotic agents; Z86.73 Personal history of transient ischemic attack (TIA), and cerebral infarction without residual deficits; Z79.84 Long term (current) use of oral hypoglycemic drugs; Z79.899 Other long term (current) drug therapy
CPT/HCPCS: 36415; 80053; 82947; 84484; 85025; 93005; 93010; 99284; 99284-25